=== PATIENT | female | born 1980 | race Caucasian/White ===

== ENCOUNTER 2024-12-11 22:14 | Emergency (ER) | payer BC, OTHER ==
[~2024-12-11] VITALS: Ht 180.3 cm; Wt 66.7 kg
[2024-12-11] MEDS ORDERED: FAMOTIDINE/PF INJ 20 MG/2 ML VIAL IV ONE (23:07)
[2024-12-11] MEDS ORDERED: diphenhydrAMINE HCL 50 MG/ML VIAL ONE (23:07)
[2024-12-11] MEDS ORDERED: methylPREDNISolone SOD SUCC 125 MG/2ML VIAL ONE (23:07)
[2024-12-11 23:10] LABS: BASOPHILS % (AUTO) 0.8 % (0.0-2.0); EOSINOPHILS # (AUTO) 0.2 K/uL (0.0-0.7); EOSINOPHILS % (AUTO) 3.8 % (0.0-6.0); HEMATOCRIT 42 % (33-45); LYMPHOCYTES % (AUTO) 35.5 % (20.0-44.0); MEAN CORPUSCULAR HEMOGLOBIN 32 PG (26.0-33.0); MEAN CORPUSCULAR HGB CONC 33 g/dl (31.0-36.0); MEAN CORPUSCULAR VOLUME 97 fL (82-100); MONOCYTES # (AUTO) 0.5 K/uL (0.1-1.30); MONOCYTES % (AUTO) 8.8 % (2.0-12.0); NEUTROPHILS # (AUTO) 2.8 K/uL (1.8-8.9); NEUTROPHILS % (AUTO) 51.1 % (43.0-81.0); PLATELET COUNT (AUTO) 157 K/uL (150-450); RED BLOOD CELL COUNT(AUTO) 4.35 MIL/uL (4.0-5.2); RED CELL DISTRIBUTION WIDTH 13.6 % (11.5-15.0); WHITE BLOOD COUNT (AUTO) 5.6 K/uL (4.3-11.0)
[2024-12-11 23:15] LABS: CALCIUM, SERUM 9.3 mg/dL (8.5-10.1); CREATININE 0.9 mg/dL (0.6-1.3); POTASSIUM 3.5 mmol/L (3.5-5.1)
[2024-12-11] MEDS: diphenhydrAMINE HCL 50 MG/ML VIAL IV ONE (23:17)
[2024-12-11] MEDS: FAMOTIDINE/PF INJ 20 MG/2 ML VIAL IV ONE (23:17)
[2024-12-11] MEDS: methylPREDNISolone SOD SUCC 125 MG/2ML VIAL IV ONE (23:17)
[2024-12-11] MEDS: IV NS 0.9% 1,000 ML IV ONE (23:17)
[2024-12-11 23:21] LABS: ALBUMIN 4.1 g/dL (3.4-5.0); BILIRUBIN,TOTAL 0.4 mg/dL (0.2-1.0); TOTAL PROTEIN, SERUM 7.5 g/dL (6.4-8.2)
[2024-12-11 23:55] LABS: APPEARANCE,URINE CLEAR (CLEAR); BILIRUBIN,URINE Negative (NEGATIVE); BLOOD, URINE Trace-intact Ery/uL (NEGATIVE); COLOR,URINE YELLOW (YELLOW); KETONES,URINE Negative (NEGATIVE); LEUKOCYTE ESTERASE ,URINE Negative (NEGATIVE); PROTEIN,URINE Negative (NEGATIVE); UGLUCOSE Negative (NEGATIVE); UROBILINOGEN,URINE 0.2 EU/dL (0.2)
[2024-12-11 23:56] LABS: NITRITE, URINE NEGATIVE (NEGATIVE); PREGNANCY TEST URINE QUAL NEGATIVE (NEGATIVE)
[2024-12-11 23:59] LABS: ADD URINE CULTURE NO; BACTERIA,URINE None seen /HPF (None Seen); RBC,URINE 0-2 /HPF (0-2); SQUAMOUS EPITHELIAL CELL,UR Rare /HPF (None Seen); WBC,URINE 0-2 /HPF (0-3)
[2024-12-12] MEDS ORDERED: DIPH50CA4 PO (00:17)
[2024-12-12] MEDS ORDERED: EPIN0.3P3 IM (00:17)
[2024-12-12] MEDS ORDERED: PRED50TA PO (00:17)
[2024-12-12 00:29] VITALS: BP 143/75; TEMP 98.1; O2SAT 100
== END 2024-12-12 00:30 | disposition home or self-care (01) ==
LOC: ER 22:16
DX: T78.49XA Other allergy, initial encounter (principal); Z79.52 Long term (current) use of systemic steroids; Z79.899 Other long term (current) drug therapy; X58.XXXA Exposure to other specified factors, initial encounter
CPT/HCPCS: 99284; 96374; 96375; 96361; 85025; 84703; 81001; 36415; 80053; J2919; J1200; J1308; J7030